=== PATIENT | female | born 1940 ===

== ENCOUNTER 2016-12-14 14:00 | Outpatient (RCR) | payer OTHER | END 2016-12-17 | disposition home or self-care (01) | LOC: PTY 14:00 | DX: M48.10 Ankylosing hyperostosis [Forestier], site unspecified (principal); M54.5 Low back pain ==

== ENCOUNTER 2016-12-19 12:50 | Outpatient (RCR) | payer OTHER | END 2017-01-17 | disposition home or self-care (01) | LOC: PTY 12:50 | DX: M48.10 Ankylosing hyperostosis [Forestier], site unspecified (principal); M54.5 Low back pain | CPT/HCPCS: 97110; 97140; G0283 ==

== ENCOUNTER 2017-01-19 13:40 | Outpatient (RCR) | payer OTHER | END 2017-02-16 | disposition home or self-care (01) | LOC: PTY 13:40 | DX: M48.10 Ankylosing hyperostosis [Forestier], site unspecified (principal); M54.5 Low back pain; G89.29 Other chronic pain | CPT/HCPCS: 97110; 97140; G0283 ==